=== PATIENT | male | born 1980 | race Hispanic/Latino ===

== ENCOUNTER 2018-08-14 13:12 | Inpatient (IN) | payer BC | END 2018-08-19 16:10 | disposition home or self-care (01) | LOC: EDH 13:12 → EDHIP 18:43 → 2AH 23:37 | DX: A41.9 Sepsis, unspecified organism (principal); J18.9 Pneumonia, unspecified organism; F10.239 Alcohol dependence with withdrawal, unspecified; F15.93 Other stimulant use, unspecified with withdrawal; E87.1 Hypo-osmolality and hyponatremia; A79.9 Rickettsiosis, unspecified; R00.0 Tachycardia, unspecified; F10.20 Alcohol dependence, uncomplicated; R50.9 Fever, unspecified; D69.6 Thrombocytopenia, unspecified; D72.819 Decreased white blood cell count, unspecified ==